=== PATIENT | male | born 1975 | race American Indian/Alaskan Native ===

== ENCOUNTER 2017-01-30 16:00 | Inpatient (IN) | payer OTHER ==
--- NOTE | 2017-01-30 16:10 | Emergency Department Report ---
Stated Complaint: PAIN Time Seen by Provider: 01/30/17 16:07 - HPI History of Present Illness: PT c/o L flank pain since [id number]. - ROS Review of Systems: + back pain + vomiting - Exam Physical Exam: pt appears drowsy No L CVA tenderness MSE screening note: Focused history and physical exam performed. Due to findings the following was ordered: labs ED Disposition for MSE Condition: Stable
[2017-01-30 16:36] LABS: Urine Drugs of Abuse Note Disclamer
[2017-01-30 16:41] LABS: Basophils % (Auto) 0.4 % (0.0-1.8); Eosinophils % (Auto) 1.3 % (0.0-4.3); Hematocrit 43.2 % (35.5-45.6); Hemoglobin 14.1 gm/dl (11.8-15.2); Mean Corpuscular HGB Conc 33 % (32-34); Mean Corpuscular Hemoglobin 30 pg (28-32); Mean Corpuscular Volume 92 fl (84-94); Platelet Count 214 K/mm3 (140-440); Red Blood Count 4.71 M/mm3 (3.65-5.03); Red Cell Distribution Width 13.4 % (13.2-15.2); White Blood Count 14.3 K/mm3 (4.5-11.0)
[2017-01-30 16:56] LABS: Bacteria,Urine 1+ /HPF (Negative); Bilirubin,Urine NEG (Negative); Blood,Urine LG (Negative); Ketones,Urine NEG (Negative); Leukocyte Esterase,Urine NEG (Negative); Mucus,Urine FEW /HPF; Nitrite,Urine NEG (Negative); Urobilinogen,Urine < 2.0 mg/dL (<2.0)
[2017-01-30 17:01] LABS: Alanine Aminotransferase 19 units/L (7-56); Albumin 4.6 g/dL (3.9-5); Albumin/Globulin Ratio 1.5 %; Alkaline Phosphatase 44 units/L (35-129); Anion Gap 17 mmol/L; BUN/Creatinine Ratio 8.88; Blood Urea Nitrogen 8 mg/dL (9-20); Calcium 8.9 mg/dL (8.4-10.2); Carbon Dioxide 28 mmol/L (22-30); Chloride 99.8 mmol/L (98-107); Glucose 110 mg/dL (75-100); Lipase 35 units/L (13-60); Potassium 4.1 mmol/L (3.6-5.0); Sodium 141 mmol/L (137-145); Total Protein 7.6 g/dL (6.3-8.2)
[2017-01-30] MEDS ORDERED: MORPHINE IV ONE (17:08)
[2017-01-30] MEDS ORDERED: ZOFRAN IV ONE (17:08)
[2017-01-30] MEDS ORDERED: NACL 0.9% 1000 ML 1,000 ML IV ONE (17:08)
--- NOTE | 2017-01-30 17:25 | Cat Scan Report ---
CT OF THE ABDOMEN AND PELVIS WITHOUT CONTRAST HISTORY: Left flank pain, hematuria. TECHNIQUE: Helical CT without contrast. Sagittal and coronal reformatted images. FINDINGS: No comparison. An 8 x 9 x 10 mm calculus is identified in the mid left ureter resulting in moderate left hydronephrosis. No additional ureteral stones. There are 3 calyceal stones in the right kidney with the largest measuring 7 mm. The bladder is partially empty but unremarkable. Normal prostate gland. The liver, biliary system, pancreas, spleen, adrenal glands, aorta and, bowel loops and appendix are within normal limits. No evidence for ascites, free air, adenopathy or inflammatory changes. Heart size is normal. The lung bases are clear. No acute bony abnormality. IMPRESSION: Left ureteral stone, obstructing. Right renal stones, nonobstructing.
[2017-01-30] MEDS ORDERED: ROCEPHIN/NS 1 GM/50 ML 1 GM/50 ML BAG IV ONE ×2 (18:13→19:00)
--- NOTE | 2017-01-30 18:23 | Admit Criteria Form ---
Admission Criteria Documentation: UROLOGIC DISEASE G Clinical Indications for Admission to Inpatient Care (Place ' X' for any and all applicable criteria): Hospital admission is needed for appropriate care of the patient because of 1 or more of the following: [X ]I. New-onset Reduced urine output, or hydronephrosis remaining after emergency or observation level care (as appropriate ) [ ]II. Renal disease needing inpatient care indicated by 1 or more of the following(2)(3)(4): [ ]a) Acute renal failure [ ]b) Significant uremic complications [ ]c) Acute kidney injury (that does not qualify as Acute renal failure ) requiring inpatient care indicated by ALL of the following(5)(6)(7)(8) (9): [ ]i) Worsening clinical status (eg, rising creatinine) despite outpatient and observation care treatment (eg, hydration) [ ]ii) Acute kidney injury indicated by 1 or more of the following: [ ]1) 2-fold or more rise in serum creatinine from baseline [ ]2) Reduction of more than 50% in estimated glomerular filtration rate from baseline [ ]3) Urine output less than 0.5 mL/kg/hr for 12 hours despite adequate volume status [ ]d) Systemic cause (eg, Goodpasture syndrome ) needing inpatient care [ ]e) Rapidly progressive renal disease needing inpatient care (eg, plasmapheresis, immunosuppression ) Anasarca needing inpatient care [ ]f) Hemoptysis [ ]g) Hemolysis, thrombosis, or infraction [ ]h) Anasarca needing inpatient care [ ]III. New-onset or uncontrolled nephrogenic diabetes insipidus [ ]IV. Urologic infection requiring inpatient care as indicated by 1 or more of the following(10)(11)(12): [ ]a) Hemodynamic instability [ ]b) Dehydration that is severe or persistent [ ]c) Failure of outpatient treatment [ ]d) Angelique's gangrene [ ]e) Urinary obstruction [ ]f) Immunocompromised state (eg, chronic steroid use ) [ ]g) Known renal or urologic abnormalities(eg, indwelling catheter, structural abnormalities ) [ ]h) Recent urologic manipulation or procedure Urinary obstruction [ ]i) Abscess requiring drainage Immunocompromised state [ ]V. Acute urinary retention requiring inpatient management as indicated by ANY ONE of the following(1)(13): [ ]a) Retention cannot be alleviated via emergency or observation level care (eg, urinary catheter placement) [ ]b) Hemodynamic instability [ ]c) Acute neurologic etiology (eg, cauda equina) [ ]d) Dehydration or other complications not manageable with emergency or observation level care [ ]e) Acute kidney injury (that does not qualify as Acute renal failure ) requiring inpatient care indicated by ALL of the following(5)(6)(7)(8) (9): [ ]i) Acute kidney injury indicated by ANY ONE of the following: [ ]1) 2-fold or more rise in serum creatinine from baseline [ ]2) Reduction of more than 50% in estimated glomerular filtration rate from baseline [ ]ii) Worsening clinical status (eg, rising creatinine) despite outpatient and observation care treatment (eg, hydration) [ ]. Gross hematuria requiring inpatient management as indicated by ANY ONE of the following(1)(2): [ ]a) Evidence of renal obstruction [ ]b) Reduced urine output [ ]c) Clot retention after urinary catheterization and irrigation [ ]d) Severe Anemia [ ]e) Systemic cause needing inpatient treatment (eg, Goodpasture syndrome) [ ]VII. Priapism not responsive to emergency or observation care treatment [ ]VII. Scrotal, testicular, or epididymal disorder requiring inpatient care indicated by 1 or more of the following(1)(14)(15)(16): [ ]a) Scrotal edema or infection not manageable with emergency or observation level care [ ]b) Orchitis not manageable with emergency or observation level care [ ]c) Epididymitis not manageable with emergency or observation level of care [ ]d) Other scrotal, testicular, or epididymal disorder (eg, infection, inflammation) not manageable with emergency or observation level care [ ]IX. Complications of transplanted kidney indicated by 1 or more of the following [ ]a) Acute graft rejection requiring inpatient management (eg, intravenous immunosuppression) [ ]b) Acute kidney injury indicated by ALL of the following i) Acute kidney injury indicated by 1 or more of the following 1) 2-fold or more rise in serum creatinine from baseline 2) Reduction of more than 50% in estimated glomerular filtration rate from baseline 3) Urine output less than 0.5 mL/kg/hr for 12 hours despite adequate volume status ii) Kidney injury too severe or not responsive to outpatient and observation care treatment (eg, hydration) [ ]c) Infection requiring inpatient management (eg, Hemodynamic instability, need for intravenous antimicrobial treatment) [ ]d) Other complication of transplanted kidney requiring patient management (eg, severe diarrhea leading to malabsorption) [ ]X. Trauma to renal, genital, or urologic system requiring inpatient medical care [ ]XI. Urologic Disease condition, symptom, or finding for which emergency and observation care have failed or are not considered appropriate. The original [employer] content created by [employer] has been revised. The portions of the content which have been revised are identified through the use of italic text or in bold, and [facility] has neither reviewed nor approved the modified material. All other unmodified content is copyright [employer]. Please see references footnoted in the original [employer] edition 2016 Admission Criteria Met: Yes
--- NOTE | 2017-01-30 18:27 | Emergency Department Report ---
ED Abdominal Pain HPI - General Chief Complaint: Abdominal Pain Stated Complaint: PAIN Time Seen by Provider: 01/30/17 16:07 Source: patient Mode of arrival: Ambulatory Limitations: No Limitations - History of Present Illness Initial Comments: 41 year old male presents to ED with left sided flank pain and N/V x1 day. Patient states he has vomited 5 times today. patient has history of kidney stones. patient is stable, neurologically intact and in mild distress with pain. MD Complaint: flank pain -: Sudden Location: L flank Radiation: none Migration to: no migration Severity: severe Severity scale (0 -10): 10 Quality: aching, sharp Consistency: constant Improves With: nothing Worsens With: nothing Associated Symptoms: nausea, vomiting. denies: fever, dysuria - Related Data Home Medications Medication Instructions Recorded Confirmed Last Taken Levothyroxine [Synthroid] 25 mcg PO QAM 09/28/15 09/28/15 Unknown Loratadine/Pseudoephedrine 1 tab PO Q12H 09/28/15 09/28/15 Unknown [Claritin-D 12HR] Previous Rx's Medication Instructions Recorded Last Taken Type traMADol [Ultram 50 MG tab] 50 mg PO Q6HR PRN #20 tablet 09/28/15 Unknown Rx Allergies Allergy/AdvReac Type Severity Reaction Status Date / Time NSAIDS (Non-Steroidal Allergy Anaphylaxis Verified 09/27/15 21:03 Anti-Inflamma ED Review of Systems ROS: Stated complaint: PAIN Other details as noted in HPI Constitutional: denies: chills, fever Eyes: denies: eye pain, eye discharge, vision change ENT: denies: ear pain, throat pain Respiratory: denies: cough, shortness of breath, wheezing Cardiovascular: denies: chest pain, palpitations Endocrine: no symptoms reported Gastrointestinal: abdominal pain (left sided flank pain), nausea, vomiting. denies: diarrhea Genitourinary: denies: urgency, dysuria Musculoskeletal: denies: back pain, joint swelling, arthralgia Skin: denies: rash, lesions Neurological: denies: headache, weakness, paresthesias Psychiatric: denies: anxiety, depression Hematological/Lymphatic: denies: easy bleeding, easy bruising ED Past Medical Hx - Past Medical History Previous Medical History?: Yes Additional medical history: "thyroid" - Surgical History Past Surgical History?: No - Social History Smoking Status: Current Every Day Smoker Substance Use Type: Alcohol, Marijuana, Non Opiate Pain, Prescribed - Medications Home Medications: Home Medications Medication Instructions Recorded Confirmed Last Taken Type Levothyroxine [Synthroid] 25 mcg PO QAM 09/28/15 09/28/15 Unknown History Loratadine/Pseudoephedrine 1 tab PO Q12H 09/28/15 09/28/15 Unknown History [Claritin-D 12HR] traMADol [Ultram 50 MG tab] 50 mg PO Q6HR PRN #20 tablet 09/28/15 Unknown Rx ED Physical Exam - General Limitations: No Limitations General appearance: alert, in no apparent distress - Head Head exam: Present: atraumatic, normocephalic - Eye Eye exam: Present: normal appearance - ENT ENT exam: Present: mucous membranes moist - Neck Neck exam: Present: normal inspection - Respiratory Respiratory exam: Present: normal lung sounds bilaterally. Absent: respiratory distress, wheezes, rales - Cardiovascular Cardiovascular Exam: Present: regular rate, normal rhythm, normal heart sounds - GI/Abdominal GI/Abdominal exam: Present: soft, normal bowel sounds. Absent: distended, tenderness, guarding, rebound - Rectal Rectal exam: Present: deferred - Extremities Exam Extremities exam: Present: normal inspection, full ROM. Absent: tenderness - Back Exam Back exam: Present: normal inspection, CVA tenderness (L) - Neurological Exam Neurological exam: Present: alert, oriented X3, normal gait - Psychiatric Psychiatric exam: Present: normal affect, normal mood - Skin Skin exam: Present: warm, dry, intact, normal color. Absent: rash ED Course Vital Signs 01/30/17 01/30/17 16:09 17:48 Temperature 98.4 F Pulse Rate 44 L Respiratory 18 20 Rate Blood Pressure 133/87 O2 Sat by Pulse 100 Oximetry ED Medical Decision Making - Lab Data Result diagrams: 01/30/17 16:27 01/30/17 16:27 Labs 01/30/17 01/30/17 01/30/17 16:27 16:27 Unknown WBC 14.3 H RBC 4.71 Hgb 14.1 Hct 43.2 MCV 92 MCH 30 MCHC 33 RDW 13.4 Plt Count 214 Lymph % (Auto) 12.3 L [place] % (Auto) 4.0 Eos % (Auto) 1.3 Baso % (Auto) 0.4 Lymph # 1.8 [place] # 0.6 Eos # 0.2 Baso # 0.1 Seg Neutrophils % 82.0 H Seg Neutrophils # 11.8 H Sodium 141 Potassium 4.1 Chloride 99.8 Carbon Dioxide 28 Anion Gap 17 BUN 8 L Creatinine 0.9 Estimated GFR > 60 BUN/Creatinine Ratio 8.88 Glucose 110 H Calcium 8.9 Total Bilirubin 0.40 AST 18 ALT 19 Alkaline Phosphatase 44 Total Protein 7.6 Albumin 4.6 Albumin/Globulin Ratio 1.5 Lipase 35 Urine Color Yellow Urine Turbidity Clear Urine pH 5.0 Ur Specific [place] 1.020 Urine Protein 30 mg/dl Urine Glucose (UA) Neg Urine Ketones Neg Urine Blood Lg Urine Nitrite Neg Urine Bilirubin Neg Urine Urobilinogen < 2.0 Ur Leukocyte Esterase Neg Urine WBC (Auto) 3.0 Urine RBC (Auto) 91.0 U Epithel Cells (Auto) < 1.0 Urine Bacteria (Auto) 1+ Urine Mucus Few Urine Opiates Screen Urine Methadone Screen Ur Barbiturates Screen Ur Phencyclidine Scrn Ur Amphetamines Screen U Benzodiazepines Scrn Urine Cocaine Screen U Marijuana (THC) Screen Drugs of Abuse Note 01/30/17 Unknown WBC RBC Hgb Hct MCV MCH MCHC RDW Plt Count Lymph % (Auto) [place] % (Auto) Eos % (Auto) Baso % (Auto) Lymph # [place] # Eos # Baso # Seg Neutrophils % Seg Neutrophils # Sodium Potassium Chloride Carbon Dioxide Anion Gap BUN Creatinine Estimated GFR BUN/Creatinine Ratio Glucose Calcium Total Bilirubin AST ALT Alkaline Phosphatase Total Protein Albumin Albumin/Globulin Ratio Lipase Urine Color Urine Turbidity Urine pH Ur Specific [place] Urine Protein Urine Glucose (UA) Urine Ketones Urine Blood Urine Nitrite Urine Bilirubin Urine Urobilinogen Ur Leukocyte Esterase Urine WBC (Auto) Urine RBC (Auto) U Epithel Cells (Auto) Urine Bacteria (Auto) Urine Mucus Urine Opiates Screen Presumptive negative Urine Methadone Screen Presumptive negative Ur Barbiturates Screen Presumptive negative Ur Phencyclidine Scrn Presumptive negative Ur Amphetamines Screen Presumptive negative U Benzodiazepines Scrn Presumptive negative Urine Cocaine Screen Presumptive negative U Marijuana (THC) Screen Presumptive positive Drugs of Abuse Note Disclamer - Radiology Data Radiology results: report reviewed CT abdomen/pel A [id number] calculus is identified in the mid left ureter resulting in moderate left hydronephrosis and obstruction. Right renal stones largest measuring 7mm, nonobstructing. - Medical Decision Making 41 year old male presents to ED with flank pain. patient has obstructing left sided ureteral stone with moderate left hydronephrosis.patient has WBC of 14. patient has no signs of infection in urine and is afebrile. patient has recieved IV fluids, zofran, morphine and rocephin. patient continues to have pain. patient will be admitted for obstruction with hydronephrosis and intractable pain. patient is stable, neurologically intact and in mild distress from pain. patient has blood cultures pending. Critical care attestation.: If time is entered above; I have spent that time in minutes in the direct care of this critically ill patient, excluding procedure time. ED Disposition Clinical Impression: Ureteral stone with hydronephrosis Disposition: DC-01 TO HOME OR SELFCARE Is pt being admited?: Yes Does the pt Need Aspirin: No Condition: Stable
[2017-01-30] MEDS ORDERED: MILK OF MAGNESIA PO PRN ×2 (22:22→22:28)
[2017-01-30] MEDS ORDERED: PERCOCET 5/325 PO PRN (22:22)
[2017-01-30] MEDS ORDERED: TYLENOL PO PRN ×2 (22:22→22:28)
[2017-01-30] MEDS ORDERED: ZOFRAN IV PRN ×2 (22:22→22:28)
[2017-01-30] MEDS ORDERED: DULCOLAX PR PRN ×2 (22:22→22:28)
--- NOTE | 2017-01-30 22:22 | History and Physical Report ---
History of Present Illness Date of examination: 01/30/17 Date of admission: 01/30/17 18:23 Chief complaint: L flank pain 1 day History of present illness: History of Present Illness 41 year old male presents to ED with left sided flank pain and N/V x1 day. Patient states he has vomited 5 times today. patient has history of kidney stones. patient is stable, neurologically intact and in mild distress with pain. MD Complaint: flank pain -: Sudden Location: L flank Radiation: none Migration to: no migration Severity: severe Severity scale (0 -10): 10 Quality: aching, sharp Consistency: constant Improves With: nothing Worsens With: nothing Associated Symptoms: nausea, vomiting. denies: fever, dysuria - Related Data Home Medications Medication Instructions Recorded Confirmed Last Taken Levothyroxine [Synthroid] 25 mcg PO QAM 09/28/15 09/28/15 Unknown Loratadine/Pseudoephedrine 1 tab PO Q12H 09/28/15 09/28/15 Unknown [Claritin-D 12HR] Previous Rx's Medication Instructions Recorded Last Taken Type traMADol [Ultram 50 MG tab] 50 mg PO Q6HR PRN #20 tablet 09/28/15 Unknown Rx Allergies Allergy/AdvReac Type Severity Reaction Status Date / Time NSAIDS (Non-Steroidal Allergy Anaphylaxis Verified 09/27/15 21:03 Anti-Inflamma Review of Systems ROS: Stated complaint: PAIN Other details as noted in HPI Constitutional: denies: chills, fever Eyes: denies: eye pain, eye discharge, vision change ENT: denies: ear pain, throat pain Respiratory: denies: cough, shortness of breath, wheezing Cardiovascular: denies: chest pain, palpitations Endocrine: no symptoms reported Gastrointestinal: abdominal pain (left sided flank pain), nausea, vomiting. denies: diarrhea Genitourinary: denies: urgency, dysuria Musculoskeletal: denies: back pain, joint swelling, arthralgia Skin: denies: rash, lesions Neurological: denies: headache, weakness, paresthesias Psychiatric: denies: anxiety, depression Hematological/Lymphatic: denies: easy bleeding, easy bruising Past Medical Hx - Past Medical History Previous Medical History?: Yes Additional medical history: "thyroid" - Surgical History Past Surgical History?: No - Social History Smoking Status: Current Every Day Smoker Substance Use Type: Alcohol, Marijuana, Non Opiate Pain, Prescribed - Medications Home Medications: Home Medications Medication Instructions Recorded Confirmed Last Taken Type Levothyroxine [Synthroid] 25 mcg PO QAM 09/28/15 09/28/15 Unknown History Loratadine/Pseudoephedrine 1 tab PO Q12H 09/28/15 09/28/15 Unknown History [Claritin-D 12HR] traMADol [Ultram 50 MG tab] 50 mg PO Q6HR PRN #20 tablet 09/28/15 Unknown Rx Medications and Allergies Allergies Allergy/AdvReac Type Severity Reaction Status Date / Time NSAIDS (Non-Steroidal Allergy Anaphylaxis Verified 09/27/15 21:03 Anti-Inflamma Home Medications Medication Instructions Recorded Confirmed Last Taken Type Levothyroxine [Synthroid] 25 mcg PO QAM 09/28/15 09/28/15 Unknown History Exam - Constitutional Vitals: Temp Pulse Resp BP Pulse Ox 98.4 F 87 18 148/85 99 01/30/17 16:09 01/30/17 18:50 01/30/17 18:50 01/30/17 18:50 01/30/17 18:50 General appearance: Present: no acute distress, well-nourished - EENT Eyes: Present: PERRL ENT: hearing intact, clear oral mucosa - Neck Neck: Present: supple, normal ROM - Respiratory Respiratory effort: normal Respiratory: bilateral: CTA - Cardiovascular Heart Sounds: Present: S1 & S2. Absent: rub, click - Extremities Extremities: pulses symmetrical, No edema Peripheral Pulses: within normal limits - Abdominal General gastrointestinal: Present: soft, non-tender, non-distended, normal bowel sounds Male genitourinary: Present: normal - Rectal Rectal Exam: deferred - Integumentary Integumentary: Present: clear, warm, dry - Musculoskeletal Musculoskeletal: gait normal, strength equal bilaterally - Psychiatric Psychiatric: appropriate mood/affect, intact judgment & insight - Neurologic Neurologic: CNII-XII intact, moves all extremities - Allied Health Allied health notes reviewed: nursing, case management Results - Labs CBC & Chem 7: 01/30/17 16:27 01/30/17 16:27 Labs: Laboratory Last Values WBC 14.3 K/mm3 (4.5-11.0) H 01/30/17 16:27 RBC 4.71 M/mm3 (3.65-5.03) 01/30/17 16:27 Hgb 14.1 gm/dl (11.8-15.2) 01/30/17 16:27 Hct 43.2 % (35.5-45.6) 01/30/17 16:27 MCV 92 fl (84-94) 01/30/17 16:27 MCH 30 pg (28-32) 01/30/17 16:27 MCHC 33 % (32-34) 01/30/17 16:27 RDW 13.4 % (13.2-15.2) 01/30/17 16:27 Plt Count 214 K/mm3 (140-440) 01/30/17 16:27 Lymph % (Auto) 12.3 % (13.4-35.0) L 01/30/17 16:27 [place] % (Auto) 4.0 % (0.0-7.3) 01/30/17 16:27 Eos % (Auto) 1.3 % (0.0-4.3) 01/30/17 16:27 Baso % (Auto) 0.4 % (0.0-1.8) 01/30/17 16:27 Lymph # 1.8 K/mm3 (1.2-5.4) 01/30/17 16:27 [place] # 0.6 K/mm3 (0.0-0.8) 01/30/17 16:27 Eos # 0.2 K/mm3 (0.0-0.4) 01/30/17 16:27 Baso # 0.1 K/mm3 (0.0-0.1) 01/30/17 16:27 Seg Neutrophils % 82.0 % (40.0-70.0) H 01/30/17 16:27 Seg Neutrophils # 11.8 K/mm3 (1.8-7.7) H 01/30/17 16:27 Sodium 141 mmol/L (137-145) 01/30/17 16:27 Potassium 4.1 mmol/L (3.6-5.0) 01/30/17 16:27 Chloride 99.8 mmol/L (98-107) 01/30/17 16:27 Carbon Dioxide 28 mmol/L (22-30) 01/30/17 16:27 Anion Gap 17 mmol/L 01/30/17 16:27 BUN 8 mg/dL (9-20) L 01/30/17 16:27 Creatinine 0.9 mg/dL (0.8-1.5) 01/30/17 16:27 Estimated GFR > 60 ml/min 01/30/17 16:27 BUN/Creatinine Ratio 8.88 % 01/30/17 16:27 Glucose 110 mg/dL (75-100) H 01/30/17 16:27 Calcium 8.9 mg/dL (8.4-10.2) 01/30/17 16:27 Total Bilirubin 0.40 mg/dL (0.1-1.2) 01/30/17 16:27 AST 18 units/L (5-40) 01/30/17 16:27 ALT 19 units/L (7-56) 01/30/17 16:27 Alkaline Phosphatase 44 units/L (35-129) 01/30/17 16:27 Total Protein 7.6 g/dL (6.3-8.2) 01/30/17 16:27 Albumin 4.6 g/dL (3.9-5) 01/30/17 16:27 Albumin/Globulin Ratio 1.5 % 01/30/17 16:27 Lipase 35 units/L (13-60) 01/30/17 16:27 Urine Color Yellow (Yellow) 01/30/17 Unknown Urine Turbidity Clear (Clear) 01/30/17 Unknown Urine pH 5.0 (5.0-7.0) 01/30/17 Unknown Ur Specific [place] 1.020 (1.003-1.030) 01/30/17 Unknown Urine Protein 30 mg/dl mg/dL (Negative) 01/30/17 Unknown Urine Glucose (UA) Neg mg/dL (Negative) 01/30/17 Unknown Urine Ketones Neg mg/dL (Negative) 01/30/17 Unknown Urine Blood Lg (Negative) 01/30/17 Unknown Urine Nitrite Neg (Negative) 01/30/17 Unknown Urine Bilirubin Neg (Negative) 01/30/17 Unknown Urine Urobilinogen < 2.0 mg/dL (<2.0) 01/30/17 Unknown Ur Leukocyte Esterase Neg (Negative) 01/30/17 Unknown Urine WBC (Auto) 3.0 /HPF (0.0-6.0) 01/30/17 Unknown Urine RBC (Auto) 91.0 /HPF (0.0-6.0) 01/30/17 Unknown U Epithel Cells (Auto) < 1.0 /HPF (0-13.0) 01/30/17 Unknown Urine Bacteria (Auto) 1+ /HPF (Negative) 01/30/17 Unknown Urine Mucus Few /HPF 01/30/17 Unknown Urine Opiates Screen Presumptive negative 01/30/17 Unknown Urine Methadone Screen Presumptive negative 01/30/17 Unknown Ur Barbiturates Screen Presumptive negative 01/30/17 Unknown Ur Phencyclidine Scrn Presumptive negative 01/30/17 Unknown Ur Amphetamines Screen Presumptive negative 01/30/17 Unknown U Benzodiazepines Scrn Presumptive negative 01/30/17 Unknown Urine Cocaine Screen Presumptive negative 01/30/17 Unknown U Marijuana (THC) Screen Presumptive positive 01/30/17 Unknown Drugs of Abuse Note Disclamer 01/30/17 Unknown - Imaging and Cardiology CT scan - abdomen: report reviewed (8x9x10 cm calculud mid L ureter with moderate Hydronephrosis) Assessment and Plan Advance Directives: Yes (FC) VTE prophylaxis?: Chemical Plan of care discussed with patient/family: Yes - Patient Problems (1) Ureteral stone with hydronephrosis Current Visit: Yes Status: Acute Plan to address problem: L mid ureter 8x9x10 mm With moderate left Hydronephrosis (2) Hypothyroidism Current Visit: Yes Status: Chronic Qualifiers: Hypothyroidism type: acquired Qualified Code(s): E03.9 - Hypothyroidism, unspecified Plan to address problem: Synthyroid 25 mcg initiated (3) DVT prophylaxis Current Visit: Yes Status: Acute Plan to address problem: on Lovenox
[2017-01-30] MEDS ORDERED: D5NS 1,000 ML IV SCH (23:00)
[2017-01-30] MEDS: DILAUDID IV PRN (23:41)
[2017-01-31] MEDS: DILAUDID IV PRN ×3 (02:23→08:54)
[2017-01-31] MEDS ORDERED: SYNTHROID PO SCH (06:00)
--- NOTE | 2017-01-31 09:29 | Progress Note ---
Hospitalist Physical - Constitutional Vitals: Temp Pulse Resp BP Pulse Ox 98.0 F 46 L 19 137/78 98 01/31/17 07:00 01/31/17 07:00 01/31/17 07:00 01/31/17 07:00 01/31/17 07:00 General appearance: Present: no acute distress, well-nourished Results - Labs CBC & Chem 7: 01/30/17 16:27 01/30/17 16:27 Labs: Laboratory Last Values WBC 14.3 K/mm3 (4.5-11.0) H 01/30/17 16:27 RBC 4.71 M/mm3 (3.65-5.03) 01/30/17 16:27 Hgb 14.1 gm/dl (11.8-15.2) 01/30/17 16:27 Hct 43.2 % (35.5-45.6) 01/30/17 16:27 MCV 92 fl (84-94) 01/30/17 16:27 MCH 30 pg (28-32) 01/30/17 16:27 MCHC 33 % (32-34) 01/30/17 16:27 RDW 13.4 % (13.2-15.2) 01/30/17 16:27 Plt Count 214 K/mm3 (140-440) 01/30/17 16:27 Lymph % (Auto) 12.3 % (13.4-35.0) L 01/30/17 16:27 Mcdonough % (Auto) 4.0 % (0.0-7.3) 01/30/17 16:27 Eos % (Auto) 1.3 % (0.0-4.3) 01/30/17 16:27 Baso % (Auto) 0.4 % (0.0-1.8) 01/30/17 16:27 Lymph # 1.8 K/mm3 (1.2-5.4) 01/30/17 16:27 Mcdonough # 0.6 K/mm3 (0.0-0.8) 01/30/17 16:27 Eos # 0.2 K/mm3 (0.0-0.4) 01/30/17 16:27 Baso # 0.1 K/mm3 (0.0-0.1) 01/30/17 16:27 Seg Neutrophils % 82.0 % (40.0-70.0) H 01/30/17 16:27 Seg Neutrophils # 11.8 K/mm3 (1.8-7.7) H 01/30/17 16:27 Sodium 141 mmol/L (137-145) 01/30/17 16:27 Potassium 4.1 mmol/L (3.6-5.0) 01/30/17 16:27 Chloride 99.8 mmol/L (98-107) 01/30/17 16:27 Carbon Dioxide 28 mmol/L (22-30) 01/30/17 16:27 Anion Gap 17 mmol/L 01/30/17 16:27 BUN 8 mg/dL (9-20) L 01/30/17 16:27 Creatinine 0.9 mg/dL (0.8-1.5) 01/30/17 16:27 Estimated GFR > 60 ml/min 01/30/17 16:27 BUN/Creatinine Ratio 8.88 % 01/30/17 16:27 Glucose 110 mg/dL (75-100) H 01/30/17 16:27 Calcium 8.9 mg/dL (8.4-10.2) 01/30/17 16:27 Total Bilirubin 0.40 mg/dL (0.1-1.2) 01/30/17 16:27 AST 18 units/L (5-40) 01/30/17 16:27 ALT 19 units/L (7-56) 01/30/17 16:27 Alkaline Phosphatase 44 units/L (35-129) 01/30/17 16:27 Total Protein 7.6 g/dL (6.3-8.2) 01/30/17 16:27 Albumin 4.6 g/dL (3.9-5) 01/30/17 16:27 Albumin/Globulin Ratio 1.5 % 01/30/17 16:27 Lipase 35 units/L (13-60) 01/30/17 16:27 Urine Color Yellow (Yellow) 01/30/17 Unknown Urine Turbidity Clear (Clear) 01/30/17 Unknown Urine pH 5.0 (5.0-7.0) 01/30/17 Unknown Ur Specific [place] 1.020 (1.003-1.030) 01/30/17 Unknown Urine Protein 30 mg/dl mg/dL (Negative) 01/30/17 Unknown Urine Glucose (UA) Neg mg/dL (Negative) 01/30/17 Unknown Urine Ketones Neg mg/dL (Negative) 01/30/17 Unknown Urine Blood Lg (Negative) 01/30/17 Unknown Urine Nitrite Neg (Negative) 01/30/17 Unknown Urine Bilirubin Neg (Negative) 01/30/17 Unknown Urine Urobilinogen < 2.0 mg/dL (<2.0) 01/30/17 Unknown Ur Leukocyte Esterase Neg (Negative) 01/30/17 Unknown Urine WBC (Auto) 3.0 /HPF (0.0-6.0) 01/30/17 Unknown Urine RBC (Auto) 91.0 /HPF (0.0-6.0) 01/30/17 Unknown U Epithel Cells (Auto) < 1.0 /HPF (0-13.0) 01/30/17 Unknown Urine Bacteria (Auto) 1+ /HPF (Negative) 01/30/17 Unknown Urine Mucus Few /HPF 01/30/17 Unknown Urine Opiates Screen Presumptive negative 01/30/17 Unknown Urine Methadone Screen Presumptive negative 01/30/17 Unknown Ur Barbiturates Screen Presumptive negative 01/30/17 Unknown Ur Phencyclidine Scrn Presumptive negative 01/30/17 Unknown Ur Amphetamines Screen Presumptive negative 01/30/17 Unknown U Benzodiazepines Scrn Presumptive negative 01/30/17 Unknown Urine Cocaine Screen Presumptive negative 01/30/17 Unknown U Marijuana (THC) Screen Presumptive positive 01/30/17 Unknown Drugs of Abuse Note Disclamer 01/30/17 Unknown
[2017-01-31] MEDS ORDERED: PEPCID PO SCH (10:00)
--- NOTE | 2017-01-31 10:22 | Anesthesia Consultation ---
Anesthesia Consult and Med Hx Date of service: 01/31/17 - Airway Anesthetic Teeth Evaluation: Good ROM Head & Neck: Adequate Mental/Hyoid Distance: Adequate Mallampati Class: Class II Intubation Access Assessment: Probably Good - Pre-Operative Health Status ASA Pre-Surgery Classification: ASA2 Proposed Anesthetic Plan: General - Pulmonary Hx Smoking: Yes (1/4 p/day x 10 years) - Gastrointestinal Hx Gastroesophageal Reflux Disease: Yes (food related) - Endocrine Hx Hypothyroidism: Yes (on synthroid)
--- NOTE | 2017-01-31 10:22 | Anesthesia Day of Surgery ---
Anesthesia Day of Surgery - Day of Surgery Patient Examined: Yes Patient H&P Reviewed: Yes Patient is NPO: Yes
[2017-01-31] MEDS ORDERED: VERSED IV NR (11:00)
[2017-01-31] MEDS ORDERED: LACTATED RINGERS 1,000 ML IV SCH ×2 (11:00→13:00)
[2017-01-31] MEDS ORDERED: PEPCID IV NR (11:00)
[2017-01-31] MEDS ORDERED: DILAUDID IV PRN (11:51)
[2017-01-31] MEDS ORDERED: NACL BACTERIOSTATIC INFILTRATI ONE (12:01)
[2017-01-31] MEDS ORDERED: DIPRIVAN 10 MG/ML IV ONE (12:11)
[2017-01-31] MEDS ORDERED: XYLOCAINE MPF 2% ONE (12:12)
[2017-01-31] MEDS ORDERED: ROCEPHIN/NS 1 GM/50 ML 1 GM/50 ML BAG IV ONE (12:12)
[2017-01-31] MEDS ORDERED: DILAUDID ONE (12:12)
[2017-01-31] MEDS ORDERED: WATER FOR IRRIG STERILE IR ONE (12:30)
[2017-01-31] MEDS ORDERED: NACL 0.9% 1000 ML 1,000 ML ONE (12:33)
[2017-01-31] MEDS ORDERED: ZOFRAN ONE (12:55)
--- NOTE | 2017-01-31 12:57 | Consultation ---
History of Present Illness - Reason for Consult Consult date: 01/31/17 - History of Present Illness CC: 7mm left ureteral stone 41 year old male presents to ED with left sided flank pain and N/V x1 day. Patient states he has vomited 5 times today. patient has history of kidney stones. patient is stable, neurologically intact and in mild distress with pain. CTAP--- 7mm left ureteral stone small rt renal stone, no hydro A/P 7mm left ureteral stone brochure given needs cysto, ureteroscopy possible outpt ESWL Medications and Allergies Allergies Allergy/AdvReac Type Severity Reaction Status Date / Time NSAIDS (Non-Steroidal Allergy Anaphylaxis Verified 09/27/15 21:03 Anti-Inflamma Home Medications Medication Instructions Recorded Confirmed Last Taken Type Levothyroxine [Synthroid] 25 mcg PO QAM 09/28/15 09/28/15 Unknown History Active Meds: Active Medications Acetaminophen (Tylenol) 650 mg PO Q4H PRN PRN Reason: Pain MILD(1-3)/Fever >100.5/REYNOLDS Bisacodyl (Dulcolax) 10 mg [place] QDAY PRN PRN Reason: Constipation unrelieved by MOM Famotidine (Pepcid) 20 mg PO BID KATIE Famotidine (Pepcid) 20 mg IV PREOP NR Stop: 01/31/17 23:59 Last Admin: 01/31/17 11:47 Dose: 20 mg Hydromorphone HCl (Dilaudid) 1 mg IV Q3H PRN PRN Reason: Pain , Severe (7-10) Last Admin: 01/31/17 08:54 Dose: 1 mg Hydromorphone HCl (Dilaudid) 0.5 mg IV Q10MIN PRN PRN Reason: Pain , Severe (7-10) Stop: 02/03/17 11:52 Dextrose/Sodium Chloride (D5ns) 1,000 mls @ 75 mls/hr IV DIRECT KATIE Last Admin: 01/30/17 23:41 Dose: 75 mls/hr Lactated Ringer's (Lactated Ringers) 1,000 mls @ 100 mls/hr IV DIRECT KATIE Last Admin: 01/31/17 11:47 Dose: 100 mls/hr Levothyroxine Sodium (Synthroid) 25 mcg PO QAM@0600 KATIE Last Admin: 01/31/17 05:47 Dose: 25 mcg Magnesium Hydroxide (Milk Of Magnesia) 30 ml PO Q4H PRN PRN Reason: Constipation Midazolam HCl (Versed) 2 mg IV PREOP NR Stop: 01/31/17 23:59 Last Admin: 01/31/17 11:55 Dose: 2 mg Ondansetron HCl (Zofran) 4 mg IV Q8H PRN PRN Reason: N/V unrelieved by Reglan Oxycodone/Acetaminophen (Percocet 5/325) 1 tab PO Q6H PRN PRN Reason: Pain, Moderate (4-6) Exam - Constitutional Vitals: Temp Pulse Resp BP Pulse Ox 97.7 F 44 L 20 127/71 97 01/31/17 11:55 01/31/17 11:55 01/31/17 11:55 01/31/17 11:55 01/31/17 11:55 Results - Labs CBC & Chem 7: 01/30/17 16:27 01/30/17 16:27
--- NOTE | 2017-01-31 12:59 | Post Operative Note ---
Date of procedure: 01/31/17 Pre-op diagnosis: left ureteral stone Post-op diagnosis: same Findings: edema Procedure: cysto, rpg, left ureteroscopy, stent Anesthesia: MARCUS Surgeon: JANE AMIN Estimated blood loss: none Pathology: none Condition: stable Disposition: PACU (PT WILL NEED OUTPT ESWL, CIPRO & NORCO ON CHART)
[2017-01-31] MEDS ORDERED: ANCEF/NS 1 GM/50 ML 1 GM/50 ML BAG IV SCH (13:00)
[2017-01-31] MEDS ORDERED: NARCAN 0.4 MG/1 ML IV PRN (13:00)
[2017-01-31] MEDS ORDERED: ZOFRAN IV PRN (13:00)
[2017-01-31] MEDS ORDERED: MORPHINE IV PRN (13:00)
--- NOTE | 2017-01-31 15:35 | Fluoroscopy Report ---
Retrograde urogram. History: Kidney stone. Findings: The right pelvicalyceal system and ureter are normal. The the proximal left ureteral calculus is again identified. The stone was manipulated and ureteroscopy but not removed. On the final image, a double-J left ureteral stent is noted in satisfactory position.
[2017-01-31 16:05] LABS: Hematocrit 39.6 % (35.5-45.6); Hemoglobin 12.8 gm/dl (11.8-15.2); Mean Corpuscular HGB Conc 32 % (32-34); Mean Corpuscular Hemoglobin 30 pg (28-32); Mean Corpuscular Volume 92 fl (84-94); Platelet Count 180 K/mm3 (140-440); Red Cell Distribution Width 13.4 % (13.2-15.2); White Blood Count 12.1 K/mm3 (4.5-11.0)
--- NOTE | 2017-01-31 16:11 | Discharge Summary ---
Providers - Providers Date of Admission: 01/30/17 18:23 Date of discharge: 01/31/17 Attending physician: RO JC 01/31/17 07:45 Consult to Physician [CONS] Routine Consulting Provider: JANE MAJOR Reason For Exam: hydronephrosis,Obstructing left ureteral stone Place consult to:: DONE PER DR. JC Notified:: DONE PER DR. JC Primary care physician: [employer]ETER Hospitalization Condition: Fair Disposition: DC-01 TO HOME OR SELFCARE - Discharge Diagnoses (1) Ureteral stone with hydronephrosis Status: Acute Core Measure Documentation - Palliative Care Palliative Care/ Comfort Measures: Not Applicable Exam - Constitutional Vitals: Temp Pulse Resp BP Pulse Ox 97.5 F L 72 16 112/56 96 01/31/17 12:59 01/31/17 13:50 01/31/17 13:50 01/31/17 13:50 01/31/17 13:50 Plan Activity: advance as tolerated Diet: regular Additional Instructions: 1.Follow up with PCP or [facility] in 1 week. 2.Follow up with Dr. Major,Urologist in 1-2 weeks for outpatient ESWL. Follow up with: PRIMARY CAREMD [Primary Care Provider] - 3-5 Days Prescriptions: Promethazine [Phenergan TAB] 25 mg PO Q6HR PRN #20 tab PRN Reason: Nausea or vomiting
--- NOTE | 2017-01-31 16:22 | Operative Report ---
PREOPERATIVE DIAGNOSIS: Left proximal ureteral stone, 7 mm. POSTOPERATIVE DIAGNOSIS: Left proximal ureteral stone, 7 mm, left renal stone. PROCEDURES: Cystoscopy, right retrograde pyelogram, left ureteroscopy, stone manipulation, left double-J stent placement with a short internal string (6-Micronesian 26 cm). SURGEON: Luis Major M.D. ANESTHESIA: General. ESTIMATED BLOOD LOSS: Minimal. FLUIDS: Crystalloid. COMPLICATIONS: No complications. FINDINGS: Significant ureteral edema in the proximal ureter. DESCRIPTION OF PROCEDURE: The patient was taken to the operative suite and placed in the supine position. After adequate general anesthesia, he was placed in a dorsal lithotomy position and prepped and draped in a sterile fashion. Thayer-cystourethroscopy was performed with a 22 Micronesian Storz cystoscope. No urethral abnormalities. His prostate was nonobstructing. His bladder had no tumors or stones. Right retrograde pyelogram was obtained with an 8 Micronesian Bhanu catheter and 8 mL of contrast. No filling defects or obstruction. On the left side due to the angulation, it was difficult to manipulate for our retrograde. With angled open catheter, I was able to negotiate 0.035 Glidewire. At that point, I was able to negotiate the second wire, which pushed the stone into a more proximal position. Rigid ureteroscopy could get the scope up to approximately L4. There was significant edema. At that point, I did not advance due to the risk of ureteral perforation. The stone appeared to be in the ureter and in the kidney at this point. A 6 Micronesian 26 cm double-J stent with an internal string was left indwelling. His bladder was drained and extubated. Rectal exam was benign. The patient will need outpatient lithotripsy. JOB# [id number] [facility]/JAMES
[2017-01-31 17:12] VITALS: BP 107/60
== END 2017-01-31 19:45 | disposition home or self-care (01) | DRG 694 ==
LOC: ED 16:00 → 3A 18:23
PROVIDERS: ADMIT Internal Medicine; ATTEND Internal Medicine
PROC: 0T778DZ Dilation of Left Ureter with Intraluminal Device, Via Natural or Artificial Opening Endoscopic (ICD-10-PCS; principal; 2017-01-31)
PROC: BT1D1ZZ Fluoroscopy of Right Kidney, Ureter and Bladder using Low Osmolar Contrast (ICD-10-PCS; 2017-01-31)
DX: N13.2 Hydronephrosis with renal and ureteral calculous obstruction (principal); E03.9 Hypothyroidism, unspecified; F17.200 Nicotine dependence, unspecified, uncomplicated; K21.9 Gastro-esophageal reflux disease without esophagitis; Z88.8 Allergy status to other drugs, medicaments and biological substances
CPT/HCPCS: 36415; 74176; 74420; 80053; 80307; 81001; 83690; 85025; 85027; 87040; A4217; C1726; C1758; C1769; C2617; J0690; J0696; J1170; J2250; J2270; J2405; J2704; J7030; J7042; J7120; Q9967

== ENCOUNTER 2017-02-23 11:15 | Day surgery (SDC) | payer OTHER ==
--- NOTE | 2017-02-23 11:13 | Short Stay Summary ---
Short Stay Documentation Date of service: 02/23/17 - History H&P: obtained from office - Allergies and Medications Current Medications: Allergies NSAIDS (Non-Steroidal Anti-Inflamma Allergy (Verified 09/27/15 21:03) Anaphylaxis Home Medications Medication Instructions Recorded Confirmed Last Taken Type Levothyroxine [Synthroid] 25 mcg PO QAM 09/28/15 02/14/17 Unknown History Ciprofloxacin HCl [Ciprofloxacin 500 mg PO BID #20 tablet 01/31/17 02/14/17 Unknown Rx TAB] Promethazine [Phenergan TAB] 25 mg PO Q6HR PRN #20 tab 01/31/17 02/14/17 Unknown Rx traMADol [Ultram] 50 mg PO Q6HR PRN #40 tablet 01/31/17 02/14/17 Unknown Rx ALBUTEROL Inhaler [Proair] 2 puff IH QID PRN 02/14/17 02/14/17 Unknown History HYDROcodone/APAP 5-325 [[place] 1 each PO Q6HR PRN 02/14/17 02/14/17 Unknown History 5/325] - Brief post op/procedure progress note Date of procedure: 02/23/17 Pre-op diagnosis: left uret stone 8mm Post-op diagnosis: same Procedure: left uret eswl Anesthesia: GETA Findings: good vis, mod dec density Surgeon: MILTON CORADO Estimated blood loss: minimal Pathology: none Condition: stable - Hospital course Hospital course: or pacu home - Disposition Condition at discharge: Good Disposition: DC-01 TO HOME OR SELFCARE Short Stay Discharge Plan Activity: advance as tolerated Diet: advance as tolerated Follow up with: JANE AMIN MD [Staff Physician] - 7 Days Forms: Outpatient Surgery DC Inst.
[~2017-02-23 11:15] MED LIST: ANCEF/STERILE WATER 2 GM/20 ML IV NR
[2017-02-23] MEDS ORDERED: PEPCID PO NR (12:09)
[2017-02-23] MEDS ORDERED: VERSED IV NR (12:09)
[2017-02-23] MEDS ORDERED: NACL 0.9% 1000 ML 1,000 ML IV SCH (12:09)
--- NOTE | 2017-02-23 12:09 | Anesthesia Consultation ---
Anesthesia Consult and Med Hx Date of service: 02/23/17 - Airway Anesthetic Teeth Evaluation: Good ROM Head & Neck: Adequate Mental/Hyoid Distance: Adequate Mallampati Class: Class II Intubation Access Assessment: Probably Good - Pulmonary Exam CTA: Yes - Cardiac Exam Cardiac Exam: RRR - Pre-Operative Health Status ASA Pre-Surgery Classification: ASA2 Proposed Anesthetic Plan: General - Pulmonary Hx Smoking: Yes (1/4 p/day x 10 years) Hx Asthma: Yes Hx Sleep Apnea: No (CODEY PRE SCREEN HIGH RISK) - Gastrointestinal Hx Gastroesophageal Reflux Disease: Yes (food related) - Endocrine Hx Thyroid Disease: Yes Hx Hypothyroidism: Yes (on synthroid) - Other Systems Hx Alcohol Use: Yes (SOCIALLY) Hx Substance Use: Yes (MARIJUANA LAST USED 02/23/17) Hx Cancer: No
--- NOTE | 2017-02-23 12:09 | Anesthesia Day of Surgery ---
Anesthesia Day of Surgery - Day of Surgery Patient Examined: Yes Patient H&P Reviewed: Yes Patient is NPO: Yes
[2017-02-23] MEDS ORDERED: ZOFRAN IV PRN (12:10)
[2017-02-23] MEDS ORDERED: DILAUDID IV PRN (12:10)
[2017-02-23] MEDS ORDERED: NACL BACTERIOSTATIC INFILTRATI ONE (12:23)
[2017-02-23] MEDS ORDERED: ANCEF/STERILE WATER 2 GM/20 ML IV NR (13:00)
[2017-02-23] MEDS ORDERED: DIPRIVAN 10 MG/ML IV ONE (14:00)
[2017-02-23] MEDS ORDERED: XYLOCAINE MPF 2% ONE (14:00)
[2017-02-23] MEDS ORDERED: DECADRON ONE (14:01)
[2017-02-23] MEDS ORDERED: ZOFRAN ONE (14:01)
[2017-02-23] MEDS ORDERED: DILAUDID ONE (14:57)
--- NOTE | 2017-02-23 15:35 | Post Anesthesia Evaluation ---
- Post Anesthesia Evaluation Patient Participated: Yes Airway Patent: Yes Stable Respiratory Function: Yes Nausea/Vomiting: No Temp > 96.8F: Yes Pain Manageable: Yes Adequeate Hydration: Yes Anesthesia Complications: No Block Receding Appropriately: Not Applicable Patient on Ventilator: No
[2017-02-23 19:21] VITALS: BP 137/81
--- NOTE | 2017-03-01 10:03 | Operative Report ---
UROLOGY OPERATIVE NOTE PREOPERATIVE DIAGNOSIS: Left ureteral 8 mm stone. POSTOPERATIVE DIAGNOSIS: Left ureteral 8 mm stone. PROCEDURE: Left ureteral ESWL. SURGEON: Clive Gordillo M.D. ANESTHESIA: General. SPECIMENS: None. ESTIMATED BLOOD LOSS: Minimal. PATHOLOGY: None. CONDITION: Stable. FINDINGS: Good visualization, moderate decrease in density. CLINICAL INDICATIONS: The patient counseled RCBA, antibiotics, SCDs, and questions answered. DESCRIPTION OF PROCEDURE: Transferred to OR suite in supine position, anesthesia begun, biplanar fluoroscopy was used to target the stone with an F2. There was good visualization. A total of 2500 shocks were delivered at a maximum of 6 kilovolts. Intermittent repositioning done as necessary. When we got towards the 2500 shocks, an additional around the shocks were delivered up to 500 additional shocks and some better decreased density. At the end of the procedure, the patient was awakened and transferred to PACU in good and stable condition. JOB# [id number] ATS/NTS
== END 2017-02-23 17:34 | disposition home or self-care (01) ==
LOC: OR 11:15
PROVIDERS: ATTEND Urology
DX: N20.1 Calculus of ureter (principal); I10 Essential (primary) hypertension; F17.210 Nicotine dependence, cigarettes, uncomplicated; J45.909 Unspecified asthma, uncomplicated; K21.9 Gastro-esophageal reflux disease without esophagitis; E03.9 Hypothyroidism, unspecified; F12.90 Cannabis use, unspecified, uncomplicated; Z72.89 Other problems related to lifestyle; Z79.899 Other long term (current) drug therapy; Z88.8 Allergy status to other drugs, medicaments and biological substances
CPT/HCPCS: 50590; J0690; J1100; J1170; J2250; J2405; J2704; J7030

== ENCOUNTER 2020-06-07 04:54 | Emergency (ER) | payer SELFPAY ==
[2020-06-07] MEDS ORDERED: SODIUM CHLORIDE 0.9% 1000 ML 1,000 ML IV ONE ×2 (05:18→09:13)
[2020-06-07] MEDS ORDERED: ONDANSETRON 4 MG/2 ML INJ IV ONE ×2 (05:18→10:04)
[2020-06-07] MEDS ORDERED: MORPHINE 4 MG/1 ML INJ IV ONE ×2 (05:19→06:25)
[2020-06-07 05:29] LABS: Bilirubin,Urine NEG (Negative); Blood,Urine MOD (Negative); Color,Urine Yellow (Yellow); Mucus,Urine FEW /HPF; Protein,Urine <15 mg/dL mg/dL (Negative); Urobilinogen,Urine < 2.0 mg/dL (<2.0)
--- NOTE | 2020-06-07 05:43 | Emergency Department Report ---
<ALFONSO SHEPARD - Last Filed: 06/07/20 05:41> ED Abdominal Pain HPI - General Chief Complaint: Abdominal Pain Stated Complaint: LOWER ABDOMINAL PAIN/VOMITING Time Seen by Provider: 06/07/20 05:18 Source: patient, family Mode of arrival: Wheelchair Limitations: No Limitations - History of Present Illness Initial Comments: Patient is a 45-year-old F [place] male with past medical history of kidney stones who states for the past day he has had pain in the suprapubic region as well as his lower back. States pain is bilateral. States it feels similar to when he had kidney stones in the past. Patient has dysuria but denies any hematuria or penile discharge. Has extreme nausea and vomited he states approximately 15 times in the last several hours. Denies diarrhea cough cold congestion fevers or chills. Patient states the pain is 8 out of 10 in severity. Severity scale (0 -10): 10 - Related Data Home Medications Medication Instructions Recorded Confirmed Last Taken Levothyroxine [Synthroid] 25 mcg PO QAM 09/28/15 02/14/17 02/21/17 Albuterol Mdi (or & Nicu Only) 2 puff IH QID PRN 02/14/17 02/14/17 02/21/17 [Proair] HYDROcodone/APAP 5-325 [[place] 1 each PO Q6HR PRN 02/14/17 02/14/17 02/21/17 5/325] Previous Rx's Medication Instructions Recorded Last Taken Type Ciprofloxacin HCl [Ciprofloxacin 500 mg PO BID #20 tablet 01/31/17 02/21/17 Rx TAB] Promethazine [Phenergan] 25 mg PO Q6HR PRN #20 tab 01/31/17 02/21/17 Rx traMADoL [Ultram] 50 mg PO Q6HR PRN #40 tablet 01/31/17 02/21/17 Rx Cefuroxime Axetil [Ceftin] 500 mg PO Q12H #10 tablet 02/23/17 Unknown Rx HYDROcodone/APAP 10-325 [[place] 0.5 - 1 each PO Q6HR PRN #20 tablet 02/23/17 Unknown Rx 10-325 mg TAB] Tamsulosin [Flomax] 0.4 mg PO QDAY 7 Days #7 cap 06/07/20 Unknown Rx oxyCODONE /ACETAMINOPHEN [Percocet 1 tab PO Q4HR PRN #20 tab 06/07/20 Unknown Rx 5/325] Allergies Allergy/AdvReac Type Severity Reaction Status Date / Time NSAIDS (Non-Steroidal Allergy Anaphylaxis Verified 09/27/15 21:03 Anti-Inflamma ED Review of Systems Comment: All other systems reviewed and negative ED Past Medical Hx - Past Medical History Previous Medical History?: Yes Hx Kidney Stones: Yes Hx Asthma: Yes Additional medical history: "thyroid"m, cholestrol - Surgical History Past Surgical History?: Yes Additional Surgical History: Kidney stones - Social History Smoking Status: Current Every Day Smoker - Medications Home Medications: Home Medications Medication Instructions Recorded Confirmed Last Taken Type Levothyroxine [Synthroid] 25 mcg PO QAM 09/28/15 02/14/17 02/21/17 History Ciprofloxacin HCl [Ciprofloxacin 500 mg PO BID #20 tablet 01/31/17 02/14/17 02/21/17 Rx TAB] Promethazine [Phenergan] 25 mg PO Q6HR PRN #20 tab 01/31/17 02/14/17 02/21/17 Rx traMADoL [Ultram] 50 mg PO Q6HR PRN #40 tablet 01/31/17 02/14/17 02/21/17 Rx Albuterol Mdi (or & Nicu Only) 2 puff IH QID PRN 02/14/17 02/14/17 02/21/17 History [Proair] HYDROcodone/APAP 5-325 [[place] 1 each PO Q6HR PRN 02/14/17 02/14/17 02/21/17 History 5/325] Cefuroxime Axetil [Ceftin] 500 mg PO Q12H #10 tablet 02/23/17 Unknown Rx HYDROcodone/APAP 10-325 [[place] 0.5 - 1 each PO Q6HR PRN #20 tablet 02/23/17 Unknown Rx 10-325 mg TAB] Tamsulosin [Flomax] 0.4 mg PO QDAY 7 Days #7 cap 06/07/20 Unknown Rx oxyCODONE /ACETAMINOPHEN [Percocet 1 tab PO Q4HR PRN #20 tab 06/07/20 Unknown Rx 5/325] ED Physical Exam - General Limitations: No Limitations General appearance: alert, in distress - Head Head exam: Present: atraumatic, normocephalic - Eye Eye exam: Present: normal appearance - ENT ENT exam: Present: normal orophraynx, mucous membranes moist - Neck Neck exam: Present: normal inspection - Respiratory Respiratory exam: Present: normal lung sounds bilaterally. Absent: respiratory distress, wheezes, rales, rhonchi - Cardiovascular Cardiovascular Exam: Present: regular rate, normal rhythm, normal heart sounds. Absent: systolic murmur, diastolic murmur, rubs, gallop - GI/Abdominal GI/Abdominal exam: Present: soft, tenderness (Suprapubic), guarding, normal bowel sounds. Absent: distended, rebound, rigid - Rectal Rectal exam: Present: deferred - Extremities Exam Extremities exam: Present: normal inspection - Back Exam Back exam: Present: normal inspection - Neurological Exam Neurological exam: Present: alert, oriented X3 - Psychiatric Psychiatric exam: Present: normal affect, normal mood - Skin Skin exam: Present: warm, dry, intact, normal color. Absent: rash ED Disposition Clinical Impression: Ureteral stone with hydronephrosis, Renal colic on right side, Acute right flank pain Disposition: TO HOME OR SELFCARE Condition: Stable Instructions: Kidney Stones, [id number] Prescriptions: Tamsulosin [Flomax] 0.4 mg PO QDAY 7 Days #7 cap oxyCODONE /ACETAMINOPHEN [Percocet 5/325] 1 tab PO Q4HR PRN #20 tab PRN Reason: Pain , Severe (7-10) Referrals: JANE AMIN MD [Staff Physician] - 2-3 Days <NAI SHEPARD - Last Filed: 06/07/20 10:37> ED Review of Systems ROS: Stated complaint: LOWER ABDOMINAL PAIN/VOMITING Other details as noted in HPI ED Course Vital Signs 06/07/20 06/07/20 05:05 07:28 Temperature 98.7 F Pulse Rate 57 L 55 L Respiratory 18 17 Rate Blood Pressure 146/92 Blood Pressure 157/84 [Left] O2 Sat by Pulse 99 97 Oximetry ED Medical Decision Making - Lab Data Result diagrams: 06/07/20 05:11 06/07/20 05:11 - Radiology Data Radiology results: report reviewed CT abdomen pelvis without contrast reveals 8 mm stone at the right UVJ resulting in moderate hydronephrosis Periureteral stranding noted. Density of stone most consistent with calcium oxalate composition - Medical Decision Making Ms. Scott presents with his third episode of renal colic. Patient has a 8 mm stone at the UVJ. Patient informed me that his second episode of renal colic required lithotripsy and ureteral stent. Patient's pain is controlled. No indication of sepsis. Nonspecific leukocytosis. No fever. No tachycardia. No signs of SIRS otherwise. No evidence of urinary tract infection according to urinalysis. Patient is currently comfortable with pain level 2 out of 10. He elected outpatient treatment after shared decision making. He understands that he must return immediately to the emergency department for signs of infection which include fever, severe pain, vomiting, general malaise. He was prescribed Percocet Flomax. He was given referral to urologist. He understands to return to the ER if he has persistent pain beyond the next several days. He was also given urine strainer prior to discharge. Critical care attestation.: If time is entered above; I have spent that time in minutes in the direct care of this critically ill patient, excluding procedure time. ED Disposition Is pt being admited?: No Does the pt Need Aspirin: No
[2020-06-07 05:45] LABS: Alanine Aminotransferase 30 units/L (7-56); Albumin 4.6 g/dL (3.9-5); Calcium 9.2 mg/dL (8.4-10.2); Hemolysis Index 10
[2020-06-07 05:47] LABS: Hemoglobin 14.9 gm/dl (11.8-15.2); Mean Corpuscular HGB Conc 35 % (32-34); Mean Corpuscular Volume 91 fl (84-94); Platelet Count 239 K/mm3 (140-440); Red Blood Count 4.71 M/mm3 (3.65-5.03); Red Cell Distribution Width 13.2 % (13.2-15.2)
[2020-06-07 06:03] LABS: BUN/Creatinine Ratio 1; Blood Urea Nitrogen 1 mg/dL (9-20)
--- NOTE | 2020-06-07 06:05 | Cat Scan Report ---
CT abdomen pelvis wo con INDICATION: abd pain dysuria hx of kidney stones. COMPARISON: 01/30/2017 TECHNIQUE: Abdominal and pelvic CT exam performed. All CT scans at this location are performed using CT dose reduction for ALARA by means of automated exposure control. FINDINGS: CT ABDOMEN and PELVIS: Lung Bases: Dependent parenchymal opacities likely atelectasis. Liver: No significant abnormality. Biliary: No significant abnormality. Spleen: No significant abnormality. Pancreas: No significant abnormality. Adrenals: No significant abnormality. Kidneys: 8 mm stone at the right ureterovesical junction resulting in moderate hydroureteronephrosis with periureteral stranding. Density of the stone is most consistent with calcium oxalate composition . There is another punctate right middle pole nonobstructing stone. There are couple of hypoattenuati ng subcentimeter left renal lesions which most likely representing cysts. Lymphatics: No lymphadenopathy. Vasculature: No significant abnormality. Bowel: No significant abnormality. Normal appendix. Pelvis: No significant abnormality. Osseous Structures: No aggressive osseous lesion. Additional Findings: None IMPRESSION: 1. 8 mm stone at the right UVJ resulting in moderate hydronephrosis. Signer Name: Ramon Lau MD Signed: 06/07/2020 6:01 AM Workstation Name: [id number]
[2020-06-07] MEDS ORDERED: TAMSULOSIN 0.4 MG CAP PO ONE (06:25)
[2020-06-07 06:41] LABS: RBC Morphology Normal; Total Cells Counted 100
[2020-06-07] MEDS ORDERED: HYDROmorphone 1 MG/1 ML INJ IV ONE ×2 (07:43→09:13)
[2020-06-07] MEDS ORDERED: oxyCODONE /ACETAMINOPHEN 5-325MG TAB PO ONE (10:04)
[2020-06-07 10:48] VITALS: BP 127/75
== END 2020-06-07 10:49 | disposition home or self-care (01) ==
LOC: ED 04:54
DX: N23 Unspecified renal colic (principal); N13.2 Hydronephrosis with renal and ureteral calculous obstruction; E78.00 Pure hypercholesterolemia, unspecified; E03.9 Hypothyroidism, unspecified; F17.200 Nicotine dependence, unspecified, uncomplicated; J45.909 Unspecified asthma, uncomplicated; Z79.899 Other long term (current) drug therapy; Z88.8 Allergy status to other drugs, medicaments and biological substances; Z87.442 Personal history of urinary calculi
CPT/HCPCS: 36415; 74176; 80053; 81001; 83690; 85007; 85025; 96361; 96374; 96375; 96376; 99284; J1170; J2270; J2405; J7030

== ENCOUNTER 2022-01-10 08:11 | Day surgery (SDC) | payer OTHER ==
[~2022-01-10 08:11] MED LIST changes: -ANCEF/STERILE WATER 2 GM/20 ML IV NR; +LIDOCAINE PF 100 MG/5 ML (CARDIAC SYRINGE) IV ONE; +fentaNYL 100 MCG/2 ML INJ ONE; +propofoL 200 MG/20 ML VIAL IV ONE
[2022-01-10] MEDS ORDERED: LACTATED RINGERS 1,000 ML ONE (08:38)
--- NOTE | 2022-01-10 09:47 | Anesthesia Consultation ---
Anesthesia Consult and Med Hx Date of service: 01/10/22 - Airway Anesthetic Teeth Evaluation: Chipped ROM Head & Neck: Adequate Mental/Hyoid Distance: Adequate Mallampati Class: Class II Intubation Access Assessment: Probably Good - Pulmonary Exam CTA: No - Pre-Operative Health Status ASA Pre-Surgery Classification: ASA3 Proposed Anesthetic Plan: General - Pulmonary Hx Smoking: Yes (Former) Hx Asthma: Yes (Last inhaler used 01/10/22) SOB: No (Pt denies) Hx Sleep Apnea: No (CODEY PRE SCREEN HIGH RISK) - Cardiovascular System Hx Hypertension: No Hx Coronary Artery Disease: No Hx Heart Attack/AMI: No Hx Pacemaker: No - Central Nervous System Hx Neuromuscular Disorder: No Hx Seizures: No Hx Psychiatric Problems: No - Gastrointestinal Hx Gastroesophageal Reflux Disease: Yes (food related) - Endocrine Hx Thyroid Disease: Yes Hx Hypothyroidism: Yes - Other Systems Hx Alcohol Use: Yes (Occas) Hx Substance Use: Yes (MARIJUANA LAST USED 02/23/17) Hx Cancer: No
[2022-01-10] MEDS ORDERED: ceFAZolin/Water 2 GM/20 ML 2 GM/20 ML SYRINGE IV ONE (09:49)
[2022-01-10] MEDS ORDERED: LACTATED RINGERS 1,000 ML IV SCH (10:00)
[2022-01-10] MEDS ORDERED: ceFAZolin/STERILE WATER 2 GM/20 ML SYRINGE IV NR (10:00)
[2022-01-10] MEDS ORDERED: dexAMETHasone 20 MG/5 ML VIAL ONE (10:39)
[2022-01-10] MEDS ORDERED: ONDANSETRON 4 MG/2 ML INJ ONE (10:39)
[2022-01-10] MEDS ORDERED: KETOROLAC 30 MG/1 ML INJ ONE ×2 (10:39→10:57)
[2022-01-10] MEDS ORDERED: ePHEDrine SULFATE 50 MG/1 ML INJ ONE (10:57)
[2022-01-10] MEDS ORDERED: WATER FOR IRRIG STERILE 2000 ML IR ONE (11:00)
--- NOTE | 2022-01-10 11:10 | Short Stay Summary ---
Short Stay Documentation Date of service: 01/10/22 - History H&P: obtained from office - Allergies and Medications Current Medications: Allergies NSAIDS (Non-Steroidal Anti-Inflamma Allergy (Verified 01/03/22 18:16) Anaphylaxis Home Medications Medication Instructions Recorded Confirmed Last Taken Type Levothyroxine [Synthroid] 112 mcg PO QAM 09/28/15 01/03/22 02/21/17 History Albuterol Mdi (or & Nicu Only) 2 puff IH QID PRN 02/14/17 01/03/22 02/21/17 History [Proair] Tamsulosin [Flomax] 0.4 mg PO QDAY 7 Days #7 cap 06/07/20 01/03/22 Unknown Rx Ondansetron (Nf) [Zofran TAB] 8 mg PO Q8HR PRN 01/03/22 01/03/22 Unknown History Oxycodone HCl/Acetaminophen 1 each PO Q6HR PRN 01/03/22 01/03/22 Unknown History [Percocet 10/325 mg] - Brief post op/procedure progress note Date of procedure: 01/10/22 Pre-op diagnosis: left ureteral stone Post-op diagnosis: other (passed stone) Procedure: cysto, rpg, left uretersoscopy stent with external string Anesthesia: VANNESAA Surgeon: JANE AMIN Condition: stable - Hospital course Hospital course: jade conner, post op info on chart - Disposition Condition at discharge: Stable Disposition: 01 HOME / SELF CARE / HOMELESS Short Stay Discharge Plan Follow up with: SIERRA CABAN MD [Primary Care Provider] - 7 Days
--- NOTE | 2022-01-10 11:28 | Operative Report ---
DATE OF SURGERY: 01/10/2022 PREOPERATIVE DIAGNOSIS: Left 9 mm ureteral stone. POSTOPERATIVE DIAGNOSIS: Passed stone. PROCEDURE PERFORMED: Cystoscopy, bilateral retrograde pyelograms, left ureteroscopy, double-J stent placement ____ 6-Monegasque, 24 cm with external string. SURGEON: Luis Major MD ANESTHESIA: General. ESTIMATED BLOOD LOSS: ____ FLUIDS: Crystalloid. COMPLICATIONS: None. INDICATIONS: This patient is a 46-year-old gentleman seen ____ with left flank pain. He had undergone CT of abdomen and pelvis and was found to have a left 9 mm ureteral stone. Conservative measures were unsuccessful. He presents now for surgical intervention. Risks, benefits and complications were explained. The patient recently stated he had an episode of gross hematuria and left flank pain, but did not see a stone. DESCRIPTION OF PROCEDURE: The patient was taken to the operative suite, placed in a supine position. After adequate general anesthesia, was placed in the dorsal lithotomy position, prepped and draped in a sterile fashion. Pancystourethroscopy was performed with a 22-Monegasque Storz cystoscope. No urethral abnormalities. His prostate obstructing his bladder. No tumors or stones were noted. Both ureteral orifices in normal position. Bilateral retrograde pyelograms were obtained with an 8-Monegasque [place] catheter and 8 mL of contrast. No filling defects or obstruction on the right. Some mild narrowing of the distal ureter on the left. Two 0.035 Glidewires were placed. Rigid ureteroscopy up to the renal pelvis was performed and no obvious stone could be appreciated. Mild edema of the distal ureter. A 6-Monegasque 24 cm double-J stent with an external string was left indwelling. Rectal exam was benign. He was extubated and taken to recovery room. He will go home on [employer] TID: [id number] RECEIPT: [id number] [facility]
--- NOTE | 2022-01-10 11:58 | Fluoroscopy Report ---
FLUOROSCOPY RETROGRADE UROGRAPHY INDICATION: CALCULUS OF URETER. COMPARISON: None. IMPRESSION: 0.3 minutes of fluoroscopy time was provided by radiology during retrograde urography by urology. 11 fluoroscopic images are presented. Please correlate with the procedural report as pat gil Signer Name: Addison Akhtar Jr, MD Signed: 01/10/2022 11:54 AM Workstation Name: [id number]
[2022-01-10] MEDS ORDERED: HYDROcodone/ACETAMINOPHEN 5-325 MG TAB PO PRN (12:05)
[2022-01-10 12:53] VITALS: BP 147/81
== END 2022-01-10 12:10 | disposition home or self-care (01) ==
LOC: OR 08:11
PROVIDERS: ATTEND Urology
DX: N13.2 Hydronephrosis with renal and ureteral calculous obstruction (principal); E03.9 Hypothyroidism, unspecified; J45.909 Unspecified asthma, uncomplicated; K21.9 Gastro-esophageal reflux disease without esophagitis; Z72.89 Other problems related to lifestyle; Z20.822 Contact with and (suspected) exposure to COVID-19; Z79.899 Other long term (current) drug therapy; Z87.891 Personal history of nicotine dependence; Z98.890 Other specified postprocedural states
CPT/HCPCS: 52332; 52351; 74420; C1758; C1769; C1889; J0690; J1100; J1885; J2001; J2405; J2704; J3010; J3490; J7120; Q9967; U0003